=== PATIENT | female | born 1990 | race Caucasian/White ===

== ENCOUNTER 2018-01-13 18:15 | Emergency (ER) | payer MEDICAID ==
[~2018-01-13] VITALS: Ht 165.1 cm; Wt 93.0 kg
[2018-01-13 18:34] VITALS: BP 141/96
== END 2018-01-13 19:06 | disposition home or self-care (01) ==
LOC: ER 18:57
DX: H66.90 Otitis media, unspecified, unspecified ear (principal)
CPT/HCPCS: 99283

== ENCOUNTER 2018-02-16 17:21 | Emergency (ER) | payer MEDICAID ==
[~2018-02-16] VITALS: Ht 165.1 cm; Wt 95.0 kg
[2018-02-16 22:17] VITALS: BP 134/74
== END 2018-02-16 22:37 | disposition home or self-care (01) ==
LOC: ER 17:21
DX: S40.862A Insect bite (nonvenomous) of left upper arm, initial encounter (principal); L03.114 Cellulitis of left upper limb; S40.861A Insect bite (nonvenomous) of right upper arm, initial encounter; W57.XXXA Bitten or stung by nonvenomous insect and other nonvenomous arthropods, initial encounter; Y93.89 Activity, other specified; Y92.89 Other specified places as the place of occurrence of the external cause; R03.0 Elevated blood-pressure reading, without diagnosis of hypertension
CPT/HCPCS: 99283